=== PATIENT | female | born 1945 | race Caucasian/White ===

== ENCOUNTER 2017-12-06 21:24 | Emergency (ER) | payer MEDICARE, BC ==
[~2017-12-06] VITALS: Ht 160 cm; Wt 52.2 kg
[~2017-12-06 21:24] MED LIST: ALPR0.254 PO; ARIP2TAB35 PO; CEPH-264 PO; CRESTOR10 MG PO; GABA600T PO; HYDR-2680 PO; HYDR-971 PO; OXYC-328 PO; ROPI1TAB PO; SUMA50TA3 PO; VENL75TA PO
[2017-12-06] MEDS ORDERED: AMLO5TAB4 PO (21:58)
[2017-12-06] MEDS ORDERED: CARB1TAB2 PO (21:58)
[2017-12-06] MEDS ORDERED: DULO30CA2 PO (21:58)
[2017-12-06] MEDS ORDERED: METO10TA81 PO (21:58)
--- NOTE | 2017-12-06 22:11 | PHYS DOC ---
Past History Past Medical History: Depression, High Cholesterol, Migraines, Other Past Surgical History: No Surgical History, Hysterectomy, Tonsillectomy Alcohol Use: Rarely Drug Use: None Adult General Chief Complaint Chief Complaint: MECHANICAL FALL HPI HPI 72-year-old female presents after fall at home. The patient was walking down the [address] when she slipped and fell backwards. She landed on her right hip. She said that she was unable to stand up and bear weight on it. She is concern for fracture. She denies hitting her head or losing consciousness. She denies any other injuries. Her primary pain is in the right groin and lateral femur. She denies fever or chills. Review of Systems Review of Systems Constitutional: Denies fever or chills [] Eyes: Denies change in visual acuity, redness, or eye pain [] HENT: Denies nasal congestion or sore throat [] Respiratory: Denies cough or shortness of breath [] Cardiovascular: No additional information not addressed in HPI [] GI: Denies abdominal pain, nausea, vomiting, bloody stools or diarrhea [] : Denies dysuria or hematuria [] Musculoskeletal: Right hip pain [] Integument: Denies rash or skin lesions [] Neurologic: Denies headache, focal weakness or sensory changes [] Endocrine: Denies polyuria or polydipsia [] All other systems were reviewed and found to be within normal limits, except as documented in this note. Allergies Allergies Allergies Coded Allergies Type Severity Reaction Last Updated Verified codeine Allergy Intermediate RASH 04/28/16 No Physical Exam Physical Exam Constitutional: Well developed, well nourished, no acute distress, non-toxic appearance. [] HENT: Normocephalic, atraumatic, bilateral external ears normal, oropharynx moist, no oral exudates, nose normal. [] Eyes: PERRLA, EOMI, conjunctiva normal, no discharge. [] Neck: Normal range of motion, no tenderness, supple, no stridor. [] Cardiovascular:Heart rate regular rhythm, no murmur [] Lungs & Thorax: Bilateral breath sounds clear to auscultation [] Abdomen: Bowel sounds normal, soft, no tenderness, no masses, no pulsatile masses. [] Skin: Warm, dry, no erythema, no rash. [] Back: No tenderness, no CVA tenderness. [] Extremities: Tenderness with compression of right hip and frog leg ROM testing. [] Neurologic: Alert and oriented X 3, normal motor function, normal sensory function, no focal deficits noted. [] Psychologic: Affect normal, judgement normal, mood normal. [] Current Patient Data Vital Signs Vital Signs Date Time Temp Pulse Resp B/P (MAP) Pulse Ox O2 Delivery O2 Flow Rate FiO2 12/06/17 21:24 98.6 83 22 100 Room Air EKG EKG [] Radiology/Procedures Radiology/Procedures [] Impressions: My reading of the patient's x-rays are negative for fracture. Course & Med Decision Making Course & Med Decision Making Pertinent Labs and Imaging studies reviewed. (See chart for details) Patient's x-rays negative for fracture. The patient was able to stand on the leg. She complained of pain and would not walk. I will give her one of her pain medication and oxycodone is 5/325 in the ED. she already has pain medication at home. The patient does not want to stay in the hospital. She is stable for discharge at this time. [] Dragon Disclaimer Dragon Disclaimer This electronic medical record was generated, in whole or in part, using a voice recognition dictation system. Departure Departure: Referrals: JEF SELLERS MD (PCP) JHON BAUMAN DO Dec 06, 2017 22:11
[2017-12-06 23:27] VITALS: BP 132/82
[2017-12-06] MEDS ORDERED: oxyCODONE/APAP 5/325 1 TAB TABLET ONE (23:30)
[2017-12-06] MEDS ORDERED: oxyCODONE/APAP 5/325 1 TAB TABLET PO ONE (23:30)
--- NOTE | 2017-12-07 07:46 | RAD ---
EXAM: Pelvis and right hip, 3 views. HISTORY: Fall. COMPARISON: None. FINDINGS: A frontal view of the pelvis and frontal and frog-leg views of the right hip are obtained. There is no fracture, dislocation or subluxation. There is instrumented posterior spinal fusion at L4-L5. There is degenerative endplate remodeling with disc space narrowing at L5-S1. IMPRESSION: No acute osseous finding. Electronically signed by: Maday Pavon MD (12/07/2017 7:43 AM) [facility]
== END 2017-12-06 23:36 | disposition home or self-care (01) ==
LOC: ER 21:24
DX: M25.551 Pain in right hip (principal); E78.00 Pure hypercholesterolemia, unspecified; G43.909 Migraine, unspecified, not intractable, without status migrainosus; Z88.5 Allergy status to narcotic agent; W01.0XXA Fall on same level from slipping, tripping and stumbling without subsequent striking against object, initial encounter; Y93.89 Activity, other specified; Y99.8 Other external cause status; Y92.89 Other specified places as the place of occurrence of the external cause
CPT/HCPCS: 73502; 99284

== ENCOUNTER 2018-07-01 17:55 | Inpatient (IN) | payer MEDICARE, BC ==
[~2018-07-01] VITALS: Ht 160 cm; Wt 49.4 kg
[~2018-07-01 17:55] MED LIST changes: +AMLO5TAB4 PO; +CARB1TAB2 PO; +DULO30CA2 PO; +HYDR-3165 PO; -HYDR-971 PO; +METO10TA81 PO; -OXYC-328 PO; +OXYC1TAB22 PO
[2018-07-01 18:22] VITALS: BP 109/66
[2018-07-01] MEDS ORDERED: oxyCODONE/APAP 5/325 1 TAB TABLET PO PRN (20:30)
[2018-07-01] MEDS ORDERED: ROPI1TAB PO (20:32)
[2018-07-01] MEDS ORDERED: LACT1CAP21 PO (20:32)
[2018-07-01] MEDS ORDERED: megace PO (20:32)
[2018-07-01] MEDS ORDERED: SERT50TA8 PO (20:32)
[2018-07-01] MEDS ORDERED: OXYC1TAB15 PO (20:32)
[2018-07-01] MEDS ORDERED: MIRT15TA PO (20:32)
[2018-07-01] MEDS: LACTOBACILLUS RHAMNOSUS GG 1 CAPSULE. PO SCH (21:16)
[2018-07-01] MEDS: MEGESTROL 40 MG TABLET. PO SCH (21:16)
[2018-07-01] MEDS: MIRTAZAPINE 15 MG TABLET PO SCH (21:16)
[2018-07-02 06:32] VITALS: BP 150/72
[2018-07-02] MEDS: SERTRALINE 50 MG TABLET. PO SCH (08:31)
[2018-07-02] MEDS: MEGESTROL 40 MG TABLET. PO SCH ×2 (08:31→21:06)
[2018-07-02] MEDS: LACTOBACILLUS RHAMNOSUS GG 1 CAPSULE. PO SCH ×2 (08:31→21:06)
[2018-07-02 18:18] VITALS: BP 103/63
[2018-07-02] MEDS: MIRTAZAPINE 15 MG TABLET PO SCH (21:06)
[2018-07-02] MEDS: rOPINIRole 1 MG TABLET. PO SCH (21:08)
[2018-07-03 05:00] VITALS: BP 125/69
[2018-07-03] MEDS: LACTOBACILLUS RHAMNOSUS GG 1 CAPSULE. PO SCH (09:49)
[2018-07-03] MEDS: SERTRALINE 50 MG TABLET. PO SCH (09:50)
[2018-07-03] MEDS: rOPINIRole 1 MG TABLET. PO SCH (09:50)
[2018-07-03] MEDS: MEGESTROL 40 MG TABLET. PO SCH (09:50)
[2018-07-03] MEDS ORDERED: OXYC1TAB15 PO (13:22)
[2018-07-03] MEDS ORDERED: ROPI1TAB PO (13:22)
--- NOTE | 2018-07-08 14:17 | HP ---
ADMIT DATE: 07/01/2018 HISTORY OF PRESENT ILLNESS: The patient is a 72-year-old female patient with a past medical history significant for cerebrovascular accident with vascular dementia and hypertension, who lives at home with her nephew, who stated that she is not acting herself. She is altered. She was treated for urinary tract infection with Keflex, but was just started on day before admission. She apparently has a history of dementia and she is alert to person only, but is able to carry on conversation and give home health history. In the Emergency Room, she was found to have leukocytosis with a white cell count of more than 16,400. Her chest x-ray showed pulmonary congestion. CT head was negative. Her potassium was high at 5.9 with EKG showing peaked T waves. Her creatinine was 10.6 and on last February she was 0.9. Her BUN was 125. She was seen in February 2018 and was sent home with home health. She has the DPOA. She was basically admitted to the [facility] with acute encephalopathy, likely multifactorial including sepsis as well as metabolic from uremia. She was given IV fluid and the Nephrology Team was consulted her acute kidney injury. Her creatinine was 0.9 on last February. At this time, it was 10.6. She was also found to have hyperkalemia, anemia, and leukocytosis. She was started on empiric antibiotic and fluid. Her renal ultrasound showed echogenic appearing bilateral kidneys, probably due to medical renal disease. Chest x-ray showed mild diffuse increased interstitial opacity, suggesting mild pulmonary congestion. She has mild enlargement of the cardiac silhouette. CT scan of the head was negative. She has mild bilateral periventricular white matter hypodensities, likely chronic small vessel ischemic disease. The patient was seen in consultation by the human capital consultant and apparently she was treated with IV fluid, bicarbonate drip antibiotic. She has had temporary hemodialysis catheter placed and apparently after stabilization, the patient was discharged to swing bed to continue the process of hemodialysis and to continue on all her medications. She was transferred to our hospital to continue on oxycodone/APAP 5/325 one tablet twice a day, mirtazapine 50 mg at bedtime, sertraline 50 mg at bedtime, Requip 3 mg twice a day and Megace 40 mg twice a day. PAST MEDICAL HISTORY: Her past medical history is significant for hypertension, CVA, chronic constipation, peptic ulcer disease, history of GI bleed, anemia, anxiety and depression. PAST SURGICAL HISTORY: Significant for cholecystectomy, hernia repair, tonsillectomy, hysterectomy and most recently a temporary hemodialysis catheter placement. FAMILY HISTORY: Heart disease. SOCIAL HISTORY: She lives with her nephew. She drinks alcohol occasionally. She does not use drugs and she does not smoke. ALLERGIES: She is allergic to CODEINE. PHYSICAL EXAMINATION: GENERAL: When I saw her at [facility], she looked well and was clearly in no apparent respiratory distress, slightly pale, but no jaundice, cyanosis or thyromegaly. No jugular venous distention. No limb edema. VITAL SIGNS: Her heart rate was 53, blood pressure 109/66, temperature was 98.8, respiratory rate 20, and oxygen saturation was 95%. HEAD, EYES, EARS, NOSE AND THROAT: Showed normocephalic, atraumatic. NECK: Supple. HEART: Showed normal first and second heart sounds. No gallop, rub or murmur. CHEST: Clear to auscultation. No crepitation or rhonchi. ABDOMEN: Distended, soft, nontender. No guarding or rigidity. No organomegaly. All hernial orifice intact. Bowel sounds normal. NEUROLOGIC: She was demented, but without any obvious lateralizing sign. We will order some CBC, CMP. Continue with all her medication. We will continue her consult physical and occupational therapy, which we will continue on her hemodialysis as an outpatient and follow her closely. DEMETRIUS HACKETT MD DR: VICTOR HUGO/linda JOB#: [id number] / [id number]
== END 2018-07-03 15:45 | disposition home health service (06) | DRG 641 ==
LOC: LND 17:55
PROVIDERS: ADMIT Internal Medicine; ATTEND Internal Medicine
DX: E87.5 Hyperkalemia (principal); N17.9 Acute kidney failure, unspecified; D64.9 Anemia, unspecified; F03.90 Unspecified dementia, unspecified severity, without behavioral disturbance, psychotic disturbance, mood disturbance, and anxiety; I10 Essential (primary) hypertension; Z86.73 Personal history of transient ischemic attack (TIA), and cerebral infarction without residual deficits; Z87.11 Personal history of peptic ulcer disease; Z90.710 Acquired absence of both cervix and uterus; D72.829 Elevated white blood cell count, unspecified; Z90.49 Acquired absence of other specified parts of digestive tract
CPT/HCPCS: 97530; 97535